=== PATIENT | male | born 1995 | race Two or more races ===

== ENCOUNTER 2016-09-03 12:01 | Emergency (ER) | payer SELFPAY ==
--- NOTE | ~2016-09-03 | CR72 ---
[facility] A Service of [facility] & [facility] RADIOLOGY TEXT RESULTS PATIENT: STEPHANE HURD LOCATION: [facility] : [birth year] UNIT #: [id number] AGE: [address]: Randolph Hernandez MD SEX: M ORDER DR: [id number] [id number] [facility] [place], [place] [address] [id number] MR#: [id number] #: [id number] NAME: STEPHANE HURD : 1995 SEX: M STUDY DATE/TIME: 09/03/2016 13:07 UNIT: [facility] ROOM: STUDY DESCRIPTION: CR Chest Single View Portable Attending Physician: Randolph Hernandez M.D. Ordering Physician: Randolph Hernandez M.D. MEDICAL IMAGING REPORT This report is preliminary unless electronic signature is present EXAM Portable chest. INDICATION Chest pain for 2 weeks. COMPARISON No comparisons. FINDINGS The lungs are well expanded. There is no acute-appearing infiltrate. Heart size normal. IMPRESSION No active disease. Dictated by... Adair Gomes M.D. THIS IS AN ELECTRONICALLY VERIFIED REPORT Adair Gomes M.D. at 09/04/2016 3:48 PM Candy TD: 09/04/2016 00:00 JOB #: [id number] MEDICAL IMAGING REPORT Page 1 of 1 COPY
--- NOTE | ~2016-09-03 | EKG ---
PATIENT: STEPHANE HURD UNIT #: [id number] Ventricular Rate: 65 BPM Atrial Rate: 65 BPM P-R Interval: 150 ms QRS Duration: 108 ms Q-T Interval: 390 ms QTC Calculation(Bezet): 405 ms P [place]: 8 degrees Calculated R [place]: 23 degrees Calculated T [place]: 53 degrees Diagnosis Line: Normal sinus rhythm Diagnosis Line: ST elevation consider anterior injury or acute Diagnosis Line: infarct Diagnosis Line: ACUTE [place] / STEMI Diagnosis Line: Abnormal ECG Diagnosis Line: No previous ECGs available Diagnosis Line: Confirmed by WEST RODRIGUEZ MD ([id number]) on Diagnosis Line: 09/05/2016 8:35:44 AM INTERPRETING MD: JENNIFER FORD
== END 2016-09-03 14:10 | disposition home or self-care (01) ==
LOC: CED 12:01
DX: R07.89 Other chest pain (principal)
CPT/HCPCS: 71010; 93005; 99284